=== PATIENT | female | born 1980 ===

== ENCOUNTER 2018-08-10 11:20 | Outpatient (CLI) | payer BC | END 2018-08-10 11:21 | disposition home or self-care (01) | LOC: C.PAT 11:20 | DX: L72.3 Sebaceous cyst (principal) ==

== ENCOUNTER 2018-08-17 13:10 | Day surgery (SDC) | payer BC ==
[2018-08-10 11:39] VITALS: BMI 37.5
[~2018-08-17 13:10] MED LIST: HYDROmorphone 0.5 mg/0.5 ml ISec IVP PRN
[2018-08-17 14:34] VITALS: O2SAT 99
[2018-08-17] MEDS ORDERED: Lidocaine/Epinephrine 1% 1:100000 10 ML IJ ONE (15:02)
[2018-08-17] MEDS ORDERED: Bupivacaine 0.25% 20 ML INJ IJ ONE (15:02)
[2018-08-17] MEDS: Piperacillin/Tazobact 3.375 gm 100 ML IVPB ONE ×2 (15:08→15:30)
--- NOTE | 2018-08-17 16:03 | PCM.SURG1 ---
Surgeon's Initial Post Op Note - Surgeon's Notes Surgeon: Dr. soliz Mastic Sprayer: Dr. Braun PGY1 Type of Anesthesia: Local Pre-Operative Diagnosis: infected sebaceous cyst of the back Operative Findings: see operative report Post-Operative Diagnosis: same Operation Performed: infected sebaceous cyst excision Specimen/Specimens Removed: infected sebaceous cyst Estimated Blood Loss: EBL {In ML}: 20 Blood Products Given: N/A Drains Used: No Drains Post-Op Condition: Good Date of Surgery/Procedure: 08/17/18 Time of Surgery/Procedure: 13:03
[2018-08-17 16:46] VITALS: RESP 18; TEMP 97.7
[2018-08-17 16:50] VITALS: BP 116/62; PULSE 62
--- NOTE | 2018-08-18 04:19 | OP ---
PROCEDURE DATE: 08/17/2018 PREOPERATIVE DIAGNOSIS: Infected sebaceous cyst of the mid upper back, approximately 4 x 3 cm size. POSTOPERATIVE DIAGNOSES: 1. Infected sebaceous cyst of the mid upper back, 5 x 3 cm size. 2. Abscess of the sebaceous cyst. PROCEDURE DONE: 1. Incision and drainage of abscess of the sebaceous cyst. 2. Excision of the sebaceous cyst of the mid upper back complete. 3. Layered closure of the wound of the back, 4 x 3 x 3 cm size. ANESTHESIA: Local anesthesia with monitoring. ESTIMATED BLOOD LOSS: Around 10 mL. DRAINS: None. PATHOLOGY: The pus was sent for the culture and sensitivity as well as completely excised sebaceous cyst was sent to the pathology. COMPLICATIONS: None. INTRAOPERATIVE FINDINGS: The patient had large infected sebaceous cyst of the mid upper back, approximately 5 x 4 cm size, and the patient also had abscess of the sebaceous cyst that was drained. Wound was irrigated multiple times. DESCRIPTION OF PROCEDURE: On intraoperative steps, this is a 38-year-old female who was diagnosed with infected sebaceous cyst of the mid upper back and the patient was consented for the excision, was brought to the OR and placed supine on the operating table. After monitoring of the patient by anesthesiologist, the back was prepped and draped in an usual sterile fashion. Local anesthesia was injected and elliptical incision was made. First upper and lower flap was created. During that, the suze pus was drained from the sebaceous cyst and the pus was sent for the culture and sensitivity. The wound was irrigated. Now the medial and lateral dissection was done and superior and inferior dissection was carried down deep up to underlying fascia and the muscle, and sebaceous cyst was completely excision and it was sent off the table for the pathology. There was proper hemostasis in each and every part of the procedure, and the wound was irrigated and antiseptic solution irrigation was also done and proper hemostasis was achieved. Now, the wound was closed in a multiple layer. The upper and lower flap was sutured with underlying fascia and muscles. The deep subcu with a 2-0 Vicryl, superficial subcu with a 3-0 Vicryl, and skin with a 4-0 Monocryl, and dry sterile dressing was applied. The patient tolerated the procedure well. Count of instrument and gauze was correct. There was no apparent complication. The patient was sent to the postanesthesia care unit in stable condition. Jacinto Ortega MD
== END 2018-08-17 16:35 | disposition home or self-care (01) ==
LOC: C.SDS 13:10
PROVIDERS: ATTEND Surgery Surgical Critical Care
DX: L72.3 Sebaceous cyst (principal)
CPT/HCPCS: 11406; 87070; 88304; J2543